=== PATIENT | female | born 1945 | race Two or more races ===

== ENCOUNTER 2018-09-29 08:15 | Inpatient (IN) | payer OTHER ==
[~2018-09-29] VITALS: Ht 160 cm; Wt 61.2 kg
[2018-09-29] MEDS ORDERED: LISINOPRIL-HCT1 EAC1 PO (10:49)
[2018-09-29] MEDS ORDERED: TRAMADOL HCL50 MG PO (10:49)
[2018-09-29] MEDS ORDERED: CLONAZEPAM2 MG PO (10:50)
[2018-09-29] MEDS ORDERED: CATAFLAN PO (10:50)
[2018-09-29] MEDS ORDERED: PRILOSEC OTC20 MG PO (10:51)
[2018-10-05] MEDS ORDERED: DICLOFENAC SODI50 MG PO (18:29)
[2018-10-07] MEDS ORDERED: ELIQUIS2.5 MG PO (17:25)
[2018-10-07] MEDS ORDERED: PERCOCET 5-3251 EACH PO (17:25)
[2018-10-07] MEDS ORDERED: DUI500 PO (17:25)
== END 2018-10-07 19:45 | DRG 470 ==
LOC: O/R 10-05 05:44 → SURH 10-05 05:44
PROVIDERS: Orthopaedic Surgery
PROC: 0MNP0ZZ Release Left Knee Bursa and Ligament, Open Approach (ICD-10-PCS; 2018-10-05)
PROC: 0SRD0J9 Replacement of Left Knee Joint with Synthetic Substitute, Cemented, Open Approach (ICD-10-PCS; principal; 2018-10-05 07:00)
DX: M17.12 Unilateral primary osteoarthritis, left knee (principal); D62 Acute posthemorrhagic anemia; I10 Essential (primary) hypertension; M81.0 Age-related osteoporosis without current pathological fracture